=== PATIENT | male | born 1995 | race African-American/Black ===

== ENCOUNTER 2018-06-08 23:53 | Emergency (ER) | payer MEDICAID ==
[~2018-06-08] VITALS: Ht 180.3 cm; Wt 72.7 kg
[2018-06-09 00:14] VITALS: BP 136/74
== END 2018-06-09 01:57 | disposition left against medical advice (07) ==
LOC: EMS 23:56
DX: F41.9 Anxiety disorder, unspecified (principal); Z53.21 Procedure and treatment not carried out due to patient leaving prior to being seen by health care provider